=== PATIENT | female | born 1980 | race Caucasian/White ===

== ENCOUNTER 2024-08-23 12:06 | Emergency (ER) | payer BC, MEDICAID ==
[~2024-08-23] VITALS: Ht 160 cm; Wt 83.5 kg
[2024-08-23] MEDS ORDERED: SULF1TAB49 PO (14:19)
--- NOTE | 2024-08-23 14:19 | Physician Documentation ---
History of Present Illness ~ Chief Complaint: Ear Discharge Stated Complaint: BLEEDING FROM EAR Time Seen by MD: 13:15 Primary Medical Doctor: [facility] Source: patient Mode of Arrival: POV Exam Limitations: no limitations HPI 44-year-old female with chief complaint right ear swelling and pain on the inside of her ear canal x1 day. She states she has had problems with it is a over years stating that it is difficult for her to hear out of her ear and it always feels like there is fluid behind her eardrum but she has not had the pain or bleeding until today. She does state yesterday she was at the dentist in her dentist but her fingers in her ear canal and was feeling around and it seemed to start after this. She did not have any pain when the dentist had her fingers in her ear but it was afterwards. Patient denies any pre arrival treatment. She does have chronic sinus congestion or right maxillary sinus area but denies any acute symptoms. No difficulty breathing through her nose. No pain behind her ear. No sore throat, fever chills. Medication Reconciliation Allergies: Coded Allergies: Penicillins (Verified Allergy, Unknown, 08/23/24) Past Medical History Past Medical History: No Pertinent History Lives In: Home Occupation: employed Review of Systems All Other Systems at this time: Reviewed and Negative Physical Exam Vital Signs: Temperature: 97.6, Source: Temporal, Heart Rate: 85, Respiratory Rate: 15, BP: 156/98, Pulse Oximetry: 97, Weight: 83.500 Oxygen Flow Rate: 0 Physical Exam General Appearance: Alert, WD/WN. NAD. HEENT: NCAT, PERRL, EOMI. Tenderness over right maxillary sinus, right TM air- fluid levels cone of light visualized TM is intact no erythema,, on the medial aspect of the ear canal there is a erythematous pustule that is oozing a very small amount of blood. The pustule was tender to palpation. Tenderness over the tragus. No tenderness over the mastoid. Left ear canal patent TM intact no air-fluid levels. Neck: Supple, trachea midline. No cervical lymphadenopathy. Cardiovascular: RRR. No m/r/g. Lungs: CTAB. Breathing unlabored Extremities: Normal inspection. No edema. Skin: Warm/dry, normal color Neurological: Alert and oriented x4, normal gait. Psychiatric: Affect congruent with mood. Progress Results/Orders Results/Orders Vital Signs 08/23/24 08/23/24 08/23/24 12:07 13:18 13:18 Temp 97.6 Pulse 88 85 Resp 16 15 16 B/P (MAP) 141/100 156/98 (117) Pulse Ox 99 97 O2 Flow Rate 0 Medical Decision Making Ear Diff. Dx: Considerations: Include: Abrasion, Cerumen impaction, Foreign body, Otitis externa, Barotrauma, Otitis media, Perforation, Referred pain- dental, Referred pain-pharyngitis, Referred pain-sinusitis, Referred pain-TMJ syn., Tympanic Membrane Injury Departure Time of Disposition: 14:15 Disposition: 01 HOME / SELF CARE / HOMELESS Impression: Primary Impression: Skin pustule Additional Impressions: Ear pressure Qualified Codes: H93.8X1 - Other specified disorders of right ear Eustachian tube disorder Qualified Codes: H69.91 - Unspecified eustachian tube disorder, right ear Condition: Stable Discharge Instructions: Eustachian Tube Dysfunction Additional Instructions: Your right ear appears to have eustachian tube dysfunction due to the fluid behind her TM and no erythema of your TM. This would be treated generally with ear tubes done by an ENT specialist your primary care provider needs to refer you. You do have a pustule on the inside of your right ear canal which may have occurred due to the trauma to your ear canal that occurred yesterday. A ntibiotics sent to your pharmacy for this I recommend warm compresses to encourage the pustule to drain. If increasing swelling, fever or pain return to the ER Referrals: NO PRIMARY CARE PROVIDER (PCP) Prescriptions Sulfamethoxazole/Trimethoprim (Bactrim Ds Tablet) 800 Mg-160 Mg Tablet 1 TAB PO Q12H for 10 Days, #20 TAB Prov: FAVIO VELAZCO 08/23/24 Education Educated: Patient Educated regarding: diagnosis, treatment, need for follow up Signature Scribe Signature: x Attestation: FAVIO Osorio Aug 23, 2024 14:19
[2024-08-23 14:25] VITALS: BP 151/113; PULSE 82; RESP 16; TEMP 97.8; O2SAT 98
== END 2024-08-23 14:26 | disposition home or self-care (01) ==
LOC: ER 12:07
DX: H69.91 Unspecified Eustachian tube disorder, right ear (principal); L08.9 Local infection of the skin and subcutaneous tissue, unspecified; Z88.0 Allergy status to penicillin
CPT/HCPCS: 99283

== ENCOUNTER 2025-01-23 22:36 | Emergency (ER) | payer BC, MEDICAID ==
[~2025-01-23] VITALS: Ht 160 cm; Wt 94.5 kg
--- NOTE | 2025-01-23 23:07 | ELECTROCARDIOGRAPH REPORT ---
[facility] Test Date: 2025-01-23 Test Time: 23:06:40 Pat Name: KATHIE ESTRADA Department: EMERGENCY ROOM Room: Gender: F Inpatient Pharmacist: MARKO : 1980 Requested By: KEYSHA DAVIS Order Number: [id number] Reading MD: Dr. BOB Jeff Measurements Intervals [place] Rate: 98 P: 53 CT: 144 QRS: -22 QRSD: 86 T: 25 QT: 350 QTc: 447 Interpretive Statements Sinus rhythm Consider right atrial enlargement Borderline left axis deviation Low voltage, precordial leads Consider anterior infarct Baseline wander in lead(s) II,III,aVF,V4,V5 Electronically Signed On 01-25-2025 19:38:[address] BOB Jeff Please click the below link to view image of tracing.
[2025-01-23 23:18] LABS: MEAN PLATELET VOLUME 7.5 FL (7.4-10.4); RED CELL DISTRIBUTION WIDTH 13.4 % (11.5-14.5)
--- NOTE | 2025-01-23 23:39 | RADIOLOGY REPORT ---
CHEST RADIOGRAPH INDICATION: CP TECHNIQUE: Single frontal view of the chest was obtained COMPARISON: None FINDINGS: Lines and Tubes: None Lungs: Clear Pleura: No effusion. No pneumothorax. Cardiomediastinal contours: Unremarkable Bones: Unremarkable IMPRESSION: 1. No acute disease.
[2025-01-23 23:43] LABS: CREATININE 0.67 MG/DL (0.40-0.90); PRO BRAIN NATRIURETIC PEPTIDE 34 PG/ML (0-125); TOTAL CARBON DIOXIDE 27.9 MMOL/L (24-32); eCRCL 90 ML/MIN; eGFR > 90 ML/MIN
[2025-01-24 00:09] VITALS: TEMP 97
--- NOTE | 2025-01-24 01:05 | Physician Documentation ---
History of Present Illness ~ Chief Complaint: Hypertension Stated Complaint: HIGH BLOOD PRESSURE Time Seen by MD: 01:04 [facility] Mode of Arrival: POV HPI 44-year-old female who presents with concern for high blood pressure She tells me that she has been very anxious recently and been having panic attacks. She also has high blood pressure and was recently started on blood pressure medicine. She checked her blood pressure today because she was feeling weird all day, and the systolic numbers were in the 170s, so she came to the ER. She denies any chest pain or shortness of breath. No abdominal pain. No severe headache. No fainting. Medication Reconciliation Allergies: Coded Allergies: Penicillins (Verified Allergy, Unknown, 08/23/24) Past Medical History Past Medical History: No Pertinent History Lives In: Home Occupation: employed Review of Systems ROS Please see HPI, otherwise negative Physical Exam Vital Signs: Temperature: 97.0, Source: Temporal, Heart Rate: 108, Respiratory Rate: 16, BP: 155/105, Pulse Oximetry: 98, Weight: 94.500 Oxygen Flow Rate: 0 Physical Exam General: This is a pleasant and anxious appearing young woman HEENT: Atraumatic, oropharynx is moist Heart: Mild tachycardic when talking, appears regular, normal-appearing peripheral perfusion Lungs: Clear breath sounds bilateral, normal work of breathing, normal oxygen saturation on room air Abdomen: Soft, nondistended, nontender all quadrants Extremities: Warm and well-perfused, no edema Neuro: Alert and oriented Psychiatric: Appears quite anxious but is cooperative with exam Progress Results/Orders Results/Orders Orders - KEYSHA DAVIS MD Chest,Single View (01/23/25 22:56) Monitor (01/23/25 22:56) Saline Lock (01/23/25 22:56) Oxygen (01/23/25 22:56) Hs Troponin I W Calculations (01/24/25 00:56) Completed Orders - KEYSHA DAVIS MD Chest,Single View (01/23/25 22:56) Cbc/Diff (01/23/25 22:56) BMP (01/23/25 22:56) PBNP (01/23/25 22:56) Electrocardiogram (01/23/25 22:56) Hs Troponin I W Calculations (01/23/25 22:56) Vital Signs 12/1101/24/25 01/24/25 01/24/25 22:50 00:05 00:09 01:27 Temp 97.0 97.0 Pulse 120 108 105 Resp 22 16 16 B/P (MAP) 179/122 155/105 (122) 148/102 Pulse Ox 98 98 98 95 O2 Delivery Room Air* O2 Flow Rate 0 0 0 FiO2 21 21 Laboratory Tests Test 01/23/25 23:12 White Blood Count 8.8 Red Blood Count 4.34 Hemoglobin 13.7 Hematocrit 40.2 Mean Corpuscular Volume 92.6 Mean Corpuscular Hemoglobin 31.6 H Mean Corpuscular Hemoglobin Concent 34.2 Red Cell Distribution Width 13.4 Platelet Count 415 Mean Platelet Volume 7.5 Neutrophils (%) (Auto) 59.7 Lymphocytes (%) (Auto) 30.8 Monocytes (%) (Auto) 7.4 Eosinophils (%) (Auto) 1.0 Basophils (%) (Auto) 1.1 H Neutrophils # (Auto) 5.3 Lymphocytes # (Auto) 2.7 Monocytes # (Auto) 0.7 Eosinophils # (Auto) 0.1 Basophils # (Auto) 0.1 CBC Comment Sodium Level 136 Potassium Level 3.7 Chloride Level 103 Carbon Dioxide Level 27.9 Anion Gap 5 L Blood Urea Nitrogen 11 Creatinine 0.67 Estimated GFR/1.73 m2 > 90 BUN/Creatinine Ratio 16.4 Glucose Level 93 Calcium Level 9.1 Troponin I High Sensitivity < 4 L Troponin I High Sens Percent Delta Troponin I Hi Sens Absolute Change Pro-B-Type Natriuretic Peptide 34 Albumin 4.0 Chemistry Comments EKG/XRAY/CT/US/VASC/MRI EKG : Additional Comment I personally interpreted the EKG and this shows: Sinus rhythm, rate 98, QTC 477, no acute ischemic changes Medical Decision Making Additional information obtaine: N/A Findings na Differential Dx:Considerations: Include HTN, essential, Include HTN, accelerated, Include HTN, malignant, Include renal failure Additional Information The patient presents with hypertension and anxiety. Per her history and exam, much of her symptoms seem related to stress and anxiety. Her testing today does not show any evidence of end-organ damage or findings to suggest hypertensive emergency. She was reassured and will be discharged with ongoing outpatient management of her chronic hypertension and anxiety symptoms. Departure Time of Disposition: 01:16 Disposition: 01 HOME / SELF CARE / HOMELESS Impression: Primary Impression: Benign hypertension Additional Impression: Anxiety Condition: Stable Discharge Instructions: Hypertension, Adult, [id number] Referrals: NO PRIMARY CARE PROVIDER (PCP) Education Educated: Patient Educated regarding: diagnosis, treatment, need for follow up Signature Scribe Signature: danette Attestation: KEYSHA Coulter MD Jan 24, 2025 01:05
[2025-01-24 01:27] VITALS: BP 148/102; PULSE 105; RESP 16; O2SAT 95
== END 2025-01-24 01:29 | disposition home or self-care (01) ==
LOC: ER 22:37
DX: I10 Essential (primary) hypertension (principal); F41.9 Anxiety disorder, unspecified; R06.02 Shortness of breath; Z88.0 Allergy status to penicillin
CPT/HCPCS: 36415; 71045; 80048; 83880; 84484; 85025; 93005; 99285